=== PATIENT | female | born 1975 | race Two or more races ===

== ENCOUNTER 2020-05-06 14:56 | Outpatient (CLI) | payer OTHER | END 2020-05-06 15:16 | disposition home or self-care (01) | LOC: MAMO-SONO 14:56 | PROVIDERS: ATTEND Obstetrics & Gynecology | DX: Z12.31 Encounter for screening mammogram for malignant neoplasm of breast (principal); N60.11 Diffuse cystic mastopathy of right breast; N60.12 Diffuse cystic mastopathy of left breast ==